=== PATIENT | female | born 1950 | race American Indian/Alaskan Native ===

== ENCOUNTER 2019-02-26 16:19 | Inpatient (IN) | payer MEDICARE ==
[2019-02-26] MEDS ORDERED: CARDIZEM IV ONE (16:21)
[2019-02-26] MEDS ORDERED: CARDIZEM/D5W 100MG/100ML 100 MG/100 ML BAG IV SCH (17:00)
--- NOTE | 2019-02-26 17:21 | XRay Report ---
CHEST 1 VIEW INDICATION / CLINICAL INFORMATION: Dysrhythmia. COMPARISON: 07/23/2014 FINDINGS: SUPPORT DEVICES: None. HEART / MEDIASTINUM: Cardiomegaly LUNGS / PLEURA: No significant pulmonary or pleural abnormality. No pneumothorax. ADDITIONAL FINDINGS: No significant additional findings. IMPRESSION: No acute pulmonary or pleural abnormality. No interval change from 07/23/2014 Signer Name: Jeb Jacobs MD FACBeti Signed: 02/26/2019 5:16 PM Workstation Name: [email or web address]
[2019-02-26] MEDS ORDERED: BABY ASPIRIN PO ONE (17:36)
[2019-02-26 17:38] LABS: Basophils % (Auto) 0.7 % (0.0-1.8); Eosinophils % (Auto) 0.7 % (0.0-4.3); Hematocrit 34.6 % (30.3-42.9); Hemoglobin 11.5 gm/dl (10.1-14.3); Lymphocytes # (Auto) 1.5 K/mm3 (1.2-5.4); Lymphocytes % (Auto) 21.3 % (13.4-35.0); Mean Corpuscular HGB Conc 33 % (30-34); Mean Corpuscular Volume 94 fl (79-97); Monocytes # (Auto) 0.6 K/mm3 (0.0-0.8); Monocytes % (Auto) 8.6 % (0.0-7.3); Platelet Count 170 K/mm3 (140-440); Red Blood Count 3.68 M/mm3 (3.65-5.03); Red Cell Distribution Width 16.5 % (13.2-15.2)
--- NOTE | 2019-02-26 17:48 | Emergency Department Report ---
ED Palpitations HPI - General Chief Complaint: Chest Pain Stated Complaint: CHEST PAIN Time Seen by Provider: 02/26/19 16:21 Source: EMS Mode of arrival: Stretcher Limitations: No Limitations - History of Present Illness Initial Comments: Mrs. Barnard is a very pleasant 68-year-old female with history of hypothyroidism type 2 diabetes mellitus, hypertension, anemia of chronic disease, hyponatremia, GERD, chronic rhinitis, stress incontinence, congestive heart failure, severe obesity who presents with severe chest pressure and tightness onset 1 hour prior to arrival. SVT heart rate 180-190 beats a minute noted EKG obtained per paramedics. Paramedics administered 2 doses of adenosine 12 mg each. No change in rate or rhythm. She has 10/10 in central chest heaviness with shortness of breath. She is unable to recall if she has had previous abnormal irregular rhythm. She is not on anticoagulation. She takes aspirin daily. She is followed by [place] physician Dr. Thayer. She has received care at [facility] on previous occasions. MD Complaint: irregular heart beat -: Sudden, hour(s) (1) Context: occured during rest Arrythmia History: other (patient cannot recall) Associated Symptoms: chest pain - Related Data Allergies Allergy/AdvReac Type Severity Reaction Status Date / Time insulin aspart [From Novolog] AdvReac Hives Verified 02/26/19 16:39 Penicillins AdvReac Swelling Verified 02/26/19 16:39 shellfish derived AdvReac Anaphylaxis Verified 02/26/19 16:39 ED Review of Systems ROS: Stated complaint: CHEST PAIN Other details as noted in HPI Comment: All other systems reviewed and negative Constitutional: denies: fever, malaise Respiratory: shortness of breath. denies: cough Cardiovascular: chest pain, palpitations ED Past Medical Hx - Past Medical History Previous Medical History?: Yes Hx Hypertension: Yes Hx Congestive Heart Failure: Yes - Surgical History Past Surgical History?: No - Social History Smoking Status: Unknown if ever smoked ED Physical Exam - General Limitations: No Limitations General appearance: alert, in no apparent distress - Head Head exam: Present: atraumatic, normocephalic - Eye Eye exam: Present: normal appearance - ENT ENT exam: Present: mucous membranes moist - Neck Neck exam: Present: normal inspection, full ROM - Respiratory Respiratory exam: Present: normal lung sounds bilaterally. Absent: respiratory distress, wheezes, rales, rhonchi - Cardiovascular Cardiovascular Exam: Present: regular rate, normal rhythm, normal heart sounds. Absent: systolic murmur, diastolic murmur, rubs, gallop - GI/Abdominal GI/Abdominal exam: Present: soft, normal bowel sounds. Absent: distended, tenderness, guarding, rebound - Extremities Exam Extremities exam: Present: other (venous stasis changes with severe lichenification) - Back Exam Back exam: Present: normal inspection - Neurological Exam Neurological exam: Present: alert, oriented X3 - Psychiatric Psychiatric exam: Present: normal affect, normal mood - Skin Skin exam: Present: warm, dry, intact, normal color. Absent: rash ED Course Vital Signs 02/26/19 02/26/19 02/26/19 16:26 16:37 16:38 Temperature 97.6 F 97.6 F Pulse Rate 192 H 192 H 192 H Respiratory 18 Rate Blood Pressure 112/76 112/61 Blood Pressure 112/81 [Left] O2 Sat by Pulse 18 L 98 Oximetry 02/26/19 02/26/19 02/26/19 17:40 18:53 19:09 Temperature Pulse Rate 76 72 79 Respiratory 18 Rate Blood Pressure 138/50 Blood Pressure 145/62 145/62 [Left] O2 Sat by Pulse 98 Oximetry 02/26/19 02/26/19 02/26/19 19:30 19:46 20:00 Temperature Pulse Rate 81 80 89 Respiratory 9 L 15 13 Rate Blood Pressure 138/50 140/59 149/66 Blood Pressure [Left] O2 Sat by Pulse 100 100 100 Oximetry 02/26/19 02/26/19 02/26/19 20:15 20:16 20:31 Temperature 98.1 F Pulse Rate 84 93 H 78 Respiratory 14 14 16 Rate Blood Pressure 155/68 143/68 Blood Pressure 143/70 [Left] O2 Sat by Pulse 100 99 100 Oximetry 02/26/19 20:45 Temperature Pulse Rate 85 Respiratory 15 Rate Blood Pressure 143/70 Blood Pressure [Left] O2 Sat by Pulse 100 Oximetry ED Medical Decision Making - Lab Data Result diagrams: 02/26/19 17:10 02/26/19 17:10 - EKG Data 02/26/19 17:47 Initial EKG obtained time 1622 Wide-complex tachycardia irregular varying QRS height, rate 190 beats a minute abnormal axis upsloping ST segments no notable ST elevation 02/26/19 17:48 Second EKG 1633 Atrial fibrillation ventricular rate 70 bpm, normal axis PVCs no ST elevation normal QRS PVC noted - Medical Decision Making Prior to patient's arrival, I reviewed the transmitted EKG which revealed SVT with bundle-branch block extremely fast 190 beats a minute. Upon patient's arrival I met her in the treatment room. I directed resuscitation. I spoke with paramedics at the bedside. While patient was on rn cardiac and pacer pads in place, we administered diltiazem 20 mg IV push once it was confirmed that blood pressure was normal. After 5 minutes, heart rate slowed from 200 bpm to 80 bpm. Repeat EKG revealed atrial fibrillation and right bundle-branch block. Once rate was controlled, chest pain had resolved. She received aspirin. She is currently now on diltiazem 5 mg per hour constant infusion. Heart rate is 75 bpm blood pressure is normal. I spoke with Dr. Yang Arriaza, she stated that this is likely new onset atrial fibrillation RVR. Into the 60 had normal sinus rhythm on EKG. I reviewed labs that showed abnormal kidney function. Age adjusted d-dimer level within normal range for her age. She is currently pain-free. Dr. Soria recommended admission to our facility. Admitted to the hospitalist service in stable condition. Critical Care Time: Yes Critical care attestation.: If time is entered above; I have spent that time in minutes in the direct care of this critically ill patient, excluding procedure time. 40 minutes of critical care time excluding procedures were used in the care of the patient. Patient required multiple assessments and interventions. I updat ed daughter at the bedside. I reviewed the electronic medical record. I spoke with consultants involved in the care of the patient. ED Disposition Clinical Impression: Atrial fibrillation with rapid ventricular response, Acute coronary syndrome, New onset atrial fibrillation Disposition: OP ADMIT IP TO THIS HOSP Is pt being admited?: Yes Does the pt Need Aspirin: No Condition: Stable
[2019-02-26 18:14] LABS: INR 1.31 (0.87-1.13)
[2019-02-26 18:36] LABS: Partial Thromboplastin Time 36.9 Sec. (24.2-36.6)
[2019-02-26 19:04] LABS: Alanine Aminotransferase 29 units/L (7-56); Albumin 4.2 g/dL (3.9-5); BUN/Creatinine Ratio 20; Blood Urea Nitrogen 42 mg/dL (7-17); Calcium 10.4 mg/dL (8.4-10.2); Hemolysis Index 74
[2019-02-26 21:02] LABS: Bacteria,Urine 1+ /HPF (Negative); Bilirubin,Urine NEG (Negative); Blood,Urine NEG (Negative); Color,Urine Straw (Yellow); Protein,Urine <15 mg/dL mg/dL (Negative); Urobilinogen,Urine < 2.0 mg/dL (<2.0)
[2019-02-26] MEDS ORDERED: BABY ASPIRIN ONE (21:27)
[2019-02-26 21:32] LABS: Amphetamine Screen,Urine PRESUMPTIVE NEGATIVE; Benzodiazepines Screen,Urine PRESUMPTIVE NEGATIVE; Cannabinoid Screen,Urine PRESUMPTIVE NEGATIVE; Cocaine Screen,Urine PRESUMPTIVE NEGATIVE; Methadone Screen,Urine PRESUMPTIVE NEGATIVE; Opiate Screen,Urine PRESUMPTIVE NEGATIVE
[2019-02-26] MEDS ORDERED: PERCOCET 5/325 PO PRN (21:40)
[2019-02-26] MEDS ORDERED: SODIUM CHLORIDE FLUSH SYRINGE 10 ML IV PRN (21:40)
[2019-02-26] MEDS ORDERED: ZOFRAN IV PRN (21:40)
[2019-02-26] MEDS ORDERED: D50W (25GM) Syringe IV PRN (21:40)
--- NOTE | 2019-02-26 21:51 | History and Physical Report ---
History of Present Illness Date of examination: 02/26/19 History of present illness: 68-year-old woman with a history of hypertension, diabetes, hypothyroidism, chronic kidney disease, anemia, GERD, CHF, obesity comes emergency room with complaints of chest pain. It started in the epigastric area which she described as a pressure-like sensation, lasting for hours intermittently, intensity follow 10, no radiation, can't identify exacerbating or relieving factor. Admits to shortness of breath, nausea, diaphoresis, feeling dizzy. EMS was called, she was found to be in SVT, rate in the 180s, she was given 2 doses of adenosine without any responses. The emergency room she was given 20 IV Cardizem and started on a Cardizem drip with good results. Patient has a sedentary lifestyle Review Of Systems: Constitutional: no weight loss, fever, chills Ears, eyes, nose, mouth and throat: no nasal congestion, no nasal discharge, no sinus pressure, blurry vision, diplopia Neck: No neck pain or rigidity. Cardiovascular: No palpitations Respiratory: No shortness of breath, cough Gastrointestinal: No hematochezia, abdominal pain Genitourinary : no dysuria, frequency , hematuria Musculoskeletal: no muscle ache , joint pain Integumentary: no rash, no pruritis Neurological: no parathesias, focal weakness Endocrine: no cold or heat intolerance, no polyuria or polydipsia Hematologic/Lymphatic: no easy bruising, no easy bleeding, no gland swelling Allergic/Immunologic: no urticaria, no angioedema. PAST MEDICAL HISTORY: hypertension, diabetes, hypothyroidism, chronic kidney disease, anemia, GERD, CHF, obesity PAST SURGICAL HISTORY: FAMILY HISTORY:hypertension, diabetes SOCIAL HISTORY: Denies tobacco, drugs, alcohol Medications and Allergies Allergies Allergy/AdvReac Type Severity Reaction Status Date / Time insulin aspart [From Novolog] AdvReac Hives Verified 02/26/19 16:39 Penicillins AdvReac Swelling Verified 02/26/19 16:39 shellfish derived AdvReac Anaphylaxis Verified 02/26/19 16:39 Active Meds: Active Medications Acetaminophen (Tylenol) 650 mg PO Q4H PRN PRN Reason: Pain MILD(1-3)/Fever >100.5/WEBB Dextrose (D50w (25gm) Syringe) 50 ml IV PRN PRN PRN Reason: Hypoglycemia Diltiazem HCl (Cardizem/D5w 100mg/100ml) 100 mg in 100 mls @ 5 mls/hr IV TITR AYANA; Protocol Last Admin: 02/26/19 19:09 Dose: 5 mg/hr, 5 mls/hr Documented by: Heparin Sodium/Sodium Chloride (Heparin/ 0.45% Nacl-25,000 Unit/500 Ml) 25,000 unit in 500 mls @ 40.823 mls/hr IV TITRATE AYANA; Protocol Ondansetron HCl (Zofran) 4 mg IV Q8H PRN PRN Reason: Nausea And Vomiting Oxycodone/Acetaminophen (Percocet 5/325) 1 tab PO Q6H PRN PRN Reason: Pain, Moderate (4-6) Sodium Chloride (Sodium Chloride Flush Syringe 10 Ml) 10 ml IV BID AYANA Sodium Chloride (Sodium Chloride Flush Syringe 10 Ml) 10 ml IV PRN PRN PRN Reason: LINE FLUSH Exam - Physical Exam Narrative exam: General Apperance: The patient sitting in bed no acute distress HEENT: Normocephalic, atraumatic. Pupils equally round and reactive to light, extraocular movement intact, and no sclericterus or JVD or thyromegaly or nodule. Neck supple, no carotid bruit, mucous membranes moist, no exudate or erythema Heart: S1-S2, regular is rhythm Lungs: Clear to auscultation bilaterally, breathing comfortable Abdomen: Positive bowel sounds, soft, nontender, nondistended, no organomegaly Extremities: No edema cyanosis clubbing Skin: no rash, nodule, warm and dry Neuro:CN 2 -12 intact, motor/sensory intact, speech is fluent - Constitutional Vitals: Temp Pulse Resp BP Pulse Ox 98.1 F 85 15 143/70 100 02/26/19 20:15 02/26/19 20:45 02/26/19 20:45 02/26/19 20:45 02/26/19 20:45 Results - Labs CBC & Chem 7: 02/26/19 17:10 02/26/19 17:10 Labs: Abnormal lab results 02/26/19 02/26/19 02/26/19 Range/Units 17:10 17:10 17:10 RDW 16.5 H (13.2-15.2) % [place] % (Auto) 8.6 H (0.0-7.3) % PT 16.0 H (12.2-14.9) Sec. INR 1.31 H (0.87-1.13) APTT 36.9 H (24.2-36.6) Sec. D-Dimer 256.70 H (0-234) ng/mlDDU BUN 42 H (7-17) mg/dL Creatinine 2.1 H (0.7-1.2) mg/dL Glucose 150 H (65-100) mg/dL Calcium 10.4 H (8.4-10.2) mg/dL AST 48 H (5-40) units/L Alkaline Phosphatase 140 H (35-129) units/L TSH (0.270-4.200) mlU/mL 02/26/19 Range/Units 17:10 RDW (13.2-15.2) % [place] % (Auto) (0.0-7.3) % PT (12.2-14.9) Sec. INR (0.87-1.13) APTT (24.2-36.6) Sec. D-Dimer (0-234) ng/mlDDU BUN (7-17) mg/dL Creatinine (0.7-1.2) mg/dL Glucose (65-100) mg/dL Calcium (8.4-10.2) mg/dL AST (5-40) units/L Alkaline Phosphatase (35-129) units/L TSH 17.500 H (0.270-4.200) mlU/mL Assessment and Plan Assessment New onset Afib Chest pain Abnormal d-dimer Hypertension Diabetes type 2 CHF, stable Chronic kidney disease Hypothyroidism Anemia GERD Obesity Plan Admit to medicine Continue Cardizem drip, start heparin drip Check cardiac enzymes, echo, monitor hemoglobin Consult critical care, cardiology Obtain VQ scan Check fingersticks, continue appropriate outpatient medications DVT prophylaxis
[2019-02-26] MEDS ORDERED: HEPARIN/ 0.45% NACL-25,000 UNIT/500 ML 25,000 UNIT/500 ML BAG IV SCH (22:00)
[2019-02-26 22:22] LABS: Hematocrit 32.4 % (30.3-42.9); Hemoglobin 10.7 gm/dl (10.1-14.3)
[2019-02-26 22:30] LABS: INR 1.13 (0.87-1.13)
[2019-02-26] MEDS: SODIUM CHLORIDE FLUSH SYRINGE 10 ML IV SCH (22:34)
[2019-02-26] MEDS ORDERED: HEPARIN/ 0.45% NACL-25,000 UNIT/500 ML 25,000 UNIT/500 ML BAG ONE (22:56)
[2019-02-27 05:16] LABS: Basophils % (Auto) 0.4 % (0.0-1.8); Eosinophils # (Auto) 0.1 K/mm3 (0.0-0.4); Eosinophils % (Auto) 1.3 % (0.0-4.3); Hematocrit 30.5 % (30.3-42.9); Hemoglobin 10.5 gm/dl (10.1-14.3); Lymphocytes # (Auto) 3.2 K/mm3 (1.2-5.4); Lymphocytes % (Auto) 39.3 % (13.4-35.0); Mean Corpuscular HGB Conc 35 % (30-34); Mean Corpuscular Volume 91 fl (79-97); Monocytes # (Auto) 0.7 K/mm3 (0.0-0.8); Monocytes % (Auto) 8.6 % (0.0-7.3); Platelet Count 175 K/mm3 (140-440); Red Blood Count 3.33 M/mm3 (3.65-5.03)
[2019-02-27 05:30] LABS: Calcium 10.3 mg/dL (8.4-10.2)
[2019-02-27 05:32] LABS: Creatine Kinase MB 1.9 ng/mL (0.0-4.0)
[2019-02-27 05:54] LABS: Chol/HDL Ratio 2.18 %
--- NOTE | 2019-02-27 10:38 | Consultation ---
REFERRING PHYSICIAN: Dr. Penny Genao. REASON FOR CONSULTATION: Advice and opinion regarding chest pain. PRIMARY CARE PHYSICIAN: At [place]. HISTORY OF PRESENT ILLNESS: The patient is a very pleasant 68-year-old -Filipino female with history of hypertension, diabetes, hypothyroidism, chronic kidney disease, anemia, ", obesity, gastroesophageal reflux disease, who presents here with chest pain. She describes intermittent chest pain, no radiation, chronic shortness of breath, nausea. She was seen in ICU, feels much better. She was found to be in atrial fibrillation, which appears to be new for her. No chest pain, at this point feels much better, seen in ICU. PAST MEDICAL HISTORY: As aforementioned. MEDICATIONS: Inpatient and outpatient medications reviewed. ALLERGIES: INSULIN, PENICILLIN, SHELLFISH. PAST SURGICAL HISTORY: C-sections. FAMILY HISTORY: Hypertension, diabetes. SOCIAL HISTORY: Nondrinker. Nonsmoker. She quit smoking as a teenager. She lives in [place]. She does have a very sedentary lifestyle. Apparently, she had 2 heart attacks years ago. Does not have any stents, details unclear. PHYSICAL EXAMINATION: VITAL SIGNS: Blood pressure is in the 130s/60s. She is afebrile. Tele reveals intermittent atrial fibrillation with controlled ventricular response. O2 sats 99% on 2 liters. GENERAL: This is an elderly -Filipino female, in no apparent distress, oriented x 3. HEENT: Sclerae icteric. NECK: Supple. No mass or JVD. CHEST: Clear to auscultation bilaterally. Good air movement. CARDIOVASCULAR: Irregularly irregular with controlled ventricular response. ABDOMEN: Soft, nontender, nondistended. Normoactive bowel sounds in 4 quadrants. EXTREMITIES: 1+ edema bilateral lower extremities. No rashes. SKIN: Warm skin. LABORATORY DATA: ECG shows atrial fibrillation with controlled ventricular response. LABORATORY DATA: CBC is unremarkable. Her potassium is 3.2, creatinine was 2.1 yesterday, 1.9 today. Magnesium is 1.6. Troponin was negative yesterday 0.041, borderline today. Urinalysis is unremarkable. UDS is unremarkable. Chest x-ray shows no acute findings. ASSESSMENT AND PLAN: In summary, the patient is a very pleasant 68-year-old -Filipino female with multiple chronic medical problems including hypertension, diabetes, hypothyroidism, chronic kidney disease, anemia and questionable heart failure, who presents here with chest pain, which has now resolved. 1. Atrial fibrillation with rapid ventricular response, now controlled ventricular response, new diagnosis. 2. Chest pain, which is with typical and atypical features, now resolved. At this point, agree with IV heparin, discontinue IV Cardizem and start p.o. Cardizem. Discussed atrial fibrillation. Stress test in a.m. Follow up echocardiogram. We will continue aspirin, statin therapy. Thank you for this consultation. We will be happy to follow along with you. [facility]# [id number]/NTS
[2019-02-27] MEDS: SODIUM CHLORIDE FLUSH SYRINGE 10 ML IV SCH ×3 (11:02→21:48)
[2019-02-27] MEDS: CARDIZEM PO SCH ×3 (11:07→23:05)
[2019-02-27] MEDS: ASPIRIN PO SCH (11:07)
--- NOTE | 2019-02-27 11:07 | Nuclear Medicine Report ---
NM lung scan perf/vent INDICATION / CLINICAL INFORMATION: eval for pe. TECHNIQUE: Dose / Agent / Route: 10.1 mCi of xenon-133 gas was inhaled. 5.1 mCi of technetium 99 MAA was then in jected intravenously COMPARISON: No relevant prior imaging study available. FINDINGS: Ventilation images are normal. Perfusion images show no significant segmental or subsegmental defect. IMPRESSION: Low probability of pulmonary embolus. Signer Name: Jeb Jacobs MD FACR Signed: 02/27/2019 11:03 AM Workstation Name: [id number]
--- NOTE | 2019-02-27 11:32 | Progress Note ---
Assessment and Plan Assessment and plan: Patient is 68-year-old woman with a history of hypertension, diabetes, hypothyroidism, chronic kidney disease, anemia, GERD, CHF, obesity comes emergency room with complaints of chest pain. EMS was called, she was found to be in SVT, rate in the 180s, she was given 2 doses of adenosine without any responses. Then she was given 20 IV Cardizem x 1 and started on a Cardizem drip with good results; therefore, admitted to ICU New onset Afib Chest pain: Cardiology is following Abnormal d-dimer, v/q scan shows low prob for PE Hypertension Diabetes type 2 CHF, stable Chronic kidney disease Hypothyroidism Anemia GERD Obesity, bmi 56.2 Plan Admit to medicine Continue Cardizem drip, stop heparin drip Check cardiac enzymes, echo, monitor hemoglobin Consult critical care, cardiology Check fingersticks, continue appropriate outpatient medications DVT prophylaxis History Interval history: Patient was seen and examined. Follow-up on current diagnosis of AFib. No overnight events reported to me. Patient denies any chest pain, shortness breath, nausea/vomiting or severe headaches. Imaging, nursing note, chart, labs and old chart reviewed. Hospitalist Physical - Physical exam Narrative exam: Gen: WDWN, Morbid obese, bmi 52.6 NAD, Awake, Alert, Orientated HEENT: NCAT, EOMI, PERRL, OP Clear Neck: supple, no adenopathy, no thyromegaly, no JVD CVS/Heart: irregular irregular, normal S1S2, pulses present bilaterally Chest/Lungs: CTA B, Symmetrical chest expansion, good air entry bilaterally GI/Abdomen: soft, NTND, good bowel sounds, no guarding or rebound /Bladder: no suprapubic tenderness, no CVA or paraspinal tenderness Extermity/Skin: no c/c/e, no obvious rash MSK: FROM x 4 Neuro: CN 2-12 grossly intact, no new focal deficits Psych: calm - Constitutional Vitals: Temp Pulse Resp BP Pulse Ox 97.8 F 69 15 144/63 100 02/27/19 07:00 02/27/19 11:07 02/27/19 09:21 02/27/19 11:07 02/27/19 09:21 Results - Labs CBC & Chem 7: 02/27/19 04:55 02/27/19 04:55 Labs: Laboratory Last Values WBC 8.1 K/mm3 (4.5-11.0) 02/27/19 04:55 RBC 3.33 M/mm3 (3.65-5.03) L 02/27/19 04:55 Hgb 10.5 gm/dl (10.1-14.3) 02/27/19 04:55 Hct 30.5 % (30.3-42.9) 02/27/19 04:55 MCV 91 fl (79-97) 02/27/19 04:55 MCH 32 pg (28-32) 02/27/19 04:55 MCHC 35 % (30-34) H 02/27/19 04:55 RDW 16.0 % (13.2-15.2) H 02/27/19 04:55 Plt Count 175 K/mm3 (140-440) 02/27/19 04:55 Lymph % (Auto) 39.3 % (13.4-35.0) H 02/27/19 04:55 [place] % (Auto) 8.6 % (0.0-7.3) H 02/27/19 04:55 Eos % (Auto) 1.3 % (0.0-4.3) 02/27/19 04:55 Baso % (Auto) 0.4 % (0.0-1.8) 02/27/19 04:55 Lymph # 3.2 K/mm3 (1.2-5.4) 02/27/19 04:55 [place] # 0.7 K/mm3 (0.0-0.8) 02/27/19 04:55 Eos # 0.1 K/mm3 (0.0-0.4) 02/27/19 04:55 Baso # 0.0 K/mm3 (0.0-0.1) 02/27/19 04:55 Seg Neutrophils % 50.4 % (40.0-70.0) 02/27/19 04:55 Seg Neutrophils # 4.1 K/mm3 (1.8-7.7) 02/27/19 04:55 PT 14.2 Sec. (12.2-14.9) 02/26/19 21:50 INR 1.13 (0.87-1.13) 02/26/19 21:50 APTT 47.0 Sec. (24.2-36.6) H 02/26/19 21:50 256.70 ng/mlDDU (0-234) H 02/26/19 17:10 Heparin Anti-Xa Level 0.21 U.I./ml (0.3-0.7) L 02/27/19 04:55 Sodium 144 mmol/L (137-145) 02/27/19 04:55 Potassium 3.2 mmol/L (3.6-5.0) L 02/27/19 04:55 Chloride 104.7 mmol/L (98-107) 02/27/19 04:55 Carbon Dioxide 27 mmol/L (22-30) 02/27/19 04:55 16 mmol/L 02/27/19 04:55 BUN 39 mg/dL (7-17) H 02/27/19 04:55 1.9 mg/dL (0.7-1.2) H 02/27/19 04:55 Estimated GFR 32 ml/min 02/27/19 04:55 21 % 02/27/19 04:55 Glucose 99 mg/dL (65-100) 02/27/19 04:55 Calcium 10.3 mg/dL (8.4-10.2) H 02/27/19 04:55 Phosphorus 2.40 mg/dL (2.5-4.5) L 02/27/19 04:55 Magnesium 1.60 mg/dL (1.7-2.3) L 02/27/19 04:55 0.40 mg/dL (0.1-1.2) 02/26/19 17:10 AST 48 units/L (5-40) H 02/26/19 17:10 ALT 29 units/L (7-56) 02/26/19 17:10 140 units/L (35-129) H 02/26/19 17:10 47 units/L (30-135) 02/27/19 04:55 CK-MB (CK-2) 1.9 ng/mL (0.0-4.0) 02/27/19 04:55 CK-MB (CK-2) Rel Index 4.0 (0-4) 02/27/19 04:55 0.041 ng/mL (0.00-0.029) H D 02/27/19 04:55 6.7 g/dL (6.3-8.2) 02/26/19 17:10 4.2 g/dL (3.9-5) 02/26/19 17:10 1.7 % 02/26/19 17:10 Triglycerides 74 mg/dL (2-149) 02/27/19 04:55 Cholesterol 109 mg/dL (50-199) 02/27/19 04:55 59 mg/dL (50-130) 02/27/19 04:55 50 mg/dL (40-59) 02/27/19 04:55 2.18 % 02/27/19 04:55 TSH 17.500 mlU/mL (0.270-4.200) H 02/26/19 17:10 5.0 ug/dL (4.0-12.0) 02/27/19 04:00 Straw (Yellow) 02/26/19 Unknown Clear (Clear) 02/26/19 Unknown 7.0 (5.0-7.0) 02/26/19 Unknown Ur Specific [place] 1.009 (1.003-1.030) 02/26/19 Unknown <15 mg/dl mg/dL (Negative) 02/26/19 Unknown Neg mg/dL (Negative) 02/26/19 Unknown Neg mg/dL (Negative) 02/26/19 Unknown Neg (Negative) 02/26/19 Unknown Neg (Negative) 02/26/19 Unknown Neg (Negative) 02/26/19 Unknown < 2.0 mg/dL (<2.0) 02/26/19 Unknown Ur Leukocyte Esterase Tr (Negative) 02/26/19 Unknown 2.0 /HPF (0.0-6.0) 02/26/19 Unknown 1.0 /HPF (0.0-6.0) 02/26/19 Unknown U Epithel Cells (Auto) 1.0 /HPF (0-13.0) 02/26/19 Unknown 1+ /HPF (Negative) 02/26/19 Unknown Presumptive negative 02/26/19 Unknown Presumptive negative 02/26/19 Unknown Ur Barbiturates Screen Presumptive negative 02/26/19 Unknown Ur Phencyclidine Scrn Presumptive negative 02/26/19 Unknown Ur Amphetamines Screen Presumptive negative 02/26/19 Unknown U Benzodiazepines Scrn Presumptive negative 02/26/19 Unknown Presumptive negative 02/26/19 Unknown U Marijuana (THC) Screen Presumptive negative 02/26/19 Unknown Disclamer 02/26/19 Unknown Active Medications - Current Medications Current Medications: Generic Name Dose Route Start Last Admin Trade Name Freq PRN Reason Stop Dose Admin Acetaminophen 650 mg 02/26/19 21:40 Tylenol PO Q4H PRN Pain MILD(1-3)/Fever >100.5/WEBB Aspirin 325 mg 02/27/19 11:00 02/27/19 11:07 Aspirin PO 325 mg QDAY AYANA Administration Atorvastatin Calcium 40 mg 02/27/19 22:00 Lipitor PO QHS AYANA Dextrose 50 ml 02/26/19 21:40 D50w (25gm) Syringe IV PRN PRN Hypoglycemia Diltiazem HCl 30 mg 02/27/19 12:00 02/27/19 11:07 Cardizem PO 30 mg Q6HR AYANA Administration Heparin Sodium/Sodium Chloride 25,000 unit in 500 mls @ 20 mls/hr 02/26/19 22:00 02/27/19 07:20 Heparin/ 0.45% Nacl-25,000 Unit/500 Ml IV 1,150 units/hr TITRATE AYANA 23 mls/hr Titration Protocol 1,000 UNITS/HR Ondansetron HCl 4 mg 02/26/19 21:40 Zofran IV Q8H PRN Nausea And Vomiting Oxycodone/Acetaminophen 1 tab 02/26/19 21:40 Percocet 5/325 PO Q6H PRN Pain, Moderate (4-6) Sodium Chloride 10 ml 02/26/19 22:00 02/27/19 11:02 Sodium Chloride Flush Syringe 10 Ml IV 10 ml BID AYANA Administration Sodium Chloride 10 ml 02/26/19 21:40 Sodium Chloride Flush Syringe 10 Ml IV PRN PRN LINE FLUSH Nutrition/Malnutrition Assess - Dietary Evaluation Nutrition/Malnutrition Findings: Nutrition Notes Start: 02/27/19 10:01 Freq: Status: Active Protocol: Document 02/27/19 10:02 LM (Rec: 02/27/19 10:08 LM [id number]) Nutrition Notes Initial or Follow up Brief Note Subjective/Other Information RN screen for skin risk. Chemo score 18. Pt with no wound. Pt ate 75% of breakfast this AM. Pt denied any weight loss. Nutrition Intervention Revisit per MD consult or patient Sign Off request:
[2019-02-27] MEDS ORDERED: K-DUR PO ONE (14:13)
[2019-02-27] MEDS ORDERED: MAGNESIUM SULFATE 2GM/50ML 2 GM/50 ML BAG IV ONE (14:13)
--- NOTE | 2019-02-27 17:37 | Event Note ---
Date: 02/27/19 Critical care consult was placed, but patient has been down-graded to Telemetry. Will cancel consult. Please re-consult or call us if patient requires pulmonary consultation.
[2019-02-27] MEDS: TYLENOL PO PRN (20:42)
[2019-02-27] MEDS: TESSALON PERLES PO SCH (23:04)
[2019-02-28] MEDS: TESSALON PERLES PO SCH ×2 (05:56→13:47)
[2019-02-28] MEDS: CARDIZEM PO SCH ×2 (05:56→12:07)
[2019-02-28] MEDS: TYLENOL PO PRN (06:00)
[2019-02-28 08:04] LABS: Hematocrit 30.5 % (30.3-42.9); Hemoglobin 10.2 gm/dl (10.1-14.3); Mean Corpuscular HGB Conc 34 % (30-34); Mean Corpuscular Volume 93 fl (79-97); Platelet Count 169 K/mm3 (140-440); Red Blood Count 3.29 M/mm3 (3.65-5.03); Red Cell Distribution Width 16.2 % (13.2-15.2)
[2019-02-28 08:15] LABS: Calcium 9.8 mg/dL (8.4-10.2)
--- NOTE | 2019-02-28 11:07 | Discharge Summary ---
Providers - Providers Date of Admission: 02/26/19 21:41 Attending physician: MARIPOSA FELICIANO MD 02/26/19 21:40 Consult to Physician [CONS] Routine Comment: Consulting Provider: TEQUILA LUCIA Physician Instructions: Reason For Exam: afib new, chewt pain Primary care physician: MIRELA YIP MD Hospitalization Condition: Stable Hospital course: Patient is 68-year-old woman with a history of hypertension, diabetes, hypothyroidism, chronic kidney disease, anemia, GERD, CHF, obesity comes emergency room with complaints of chest pain. EMS was called, she was found to be in SVT, rate in the 180s, she was given 2 doses of adenosine without any responses. Then she was given 20 IV Cardizem x 1 and started on a Cardizem drip with good results; therefore, admitted to ICU New onset Afib Chest pain: Cardiology is following Abnormal d-dimer, v/q scan shows low prob for PE Hypertension Diabetes type 2 CHF, stable Chronic kidney disease Hypothyroidism Anemia GERD Obesity, bmi 56.2 Plan Admit to medicine Continue Cardizem drip, stop heparin drip Check cardiac enzymes, echo, monitor hemoglobin Consult critical care, cardiology Check fingersticks, continue appropriate outpatient medications DVT prophylaxis Disposition: DC-30 STILL A PATIENT Core Measure Documentation - Palliative Care Palliative Care/ Comfort Measures: Not Applicable Exam - Constitutional Vitals: Temp Pulse Resp BP Pulse Ox 98.6 F 87 20 153/78 95 02/28/19 05:04 02/28/19 05:56 02/28/19 06:00 02/28/19 05:56 02/28/19 05:03 Plan Activity: advance as tolerated, fall precautions Diet: low fat, diabetic Special Instructions: record daily weights, record daily BP diary Follow up with: PRIMARY CARE, [Referring] - 3-5 Days MATIAS HAN MD [Staff Physician] - 7 Days Prescriptions: AtorvaSTATin [Lipitor] 40 mg PO QHS #30 tablet Aspirin [Aspirin BABY CHEW TAB] 81 mg PO QDAY #30 tab.chew dilTIAZem HCl [Diltiazem 24Hr ER (Cd)] 240 mg PO DAILY #30 cap.er.24h Apixaban [Eliquis] 5 mg PO Q12HR #60 tablet Metoprolol Xl [Metoprolol SUCCINATE ER TAB] 50 mg PO QDAY #30 tablet Benzonatate [Tessalon Perlrivera] 200 mg PO Q8HR #10 capsule
[2019-02-28] MEDS: ASPIRIN PO SCH (12:07)
[2019-02-28 12:09] VITALS: BP 125/66
[2019-02-28] MEDS: SODIUM CHLORIDE FLUSH SYRINGE 10 ML IV SCH (12:10)
--- NOTE | 2019-02-28 12:13 | Progress Note ---
Assessment and Plan Pt was scheduled for pharmacologic MPI stress test this AM. However, her body habitus precludes stress testing at this time. Currently stable cardiac status. Pt reports resolution of chest pain. She states that when her chest pain was present, it was aggravated by deep inspiration and movement. Pt also with h/o GERD and arthritis. No plans for ischemic w/u at this time. If symptoms recur, can consider cardiac catheterization with primary burnishing machine operator at [place]. Pt is agreeable to this plan. Echo reviewed - EF 45-50%, restrictive diastolic filling, LA severely dilated, mild MR, mild TR, mod pulm HTN with RVSP 53mmHg. Tele reviewed - pt remains in Aflutter with HR 90s - 100s. This is a new diagnosis for pt. Intiate Eliquis 5mg BID and convert cardizem to cardizem CD 120mg daily. Pt reports that she does have sleep apnea, however, she is admittedly noncompliant with CPAP. Compliance with CPAP encouraged. TSH noted to be elevated - further eval/management per primary. Pt may discharge from cardiology standpoint. Recommend pt follow up with her primary burnishing machine operator at [facility] within 1-2 weeks of hospital discharge. Pt verb alizes understanding. The patient has been seen in conjunction with Dr. Pat who agrees with the assessment and plan of care. - Patient Problems (1) Atypical chest pain Current Visit: Yes Status: Resolved (2) New onset atrial fibrillation Current Visit: Yes Status: Acute (3) HTN (hypertension) Current Visit: Yes Status: Chronic (4) Diabetes Current Visit: Yes Status: Acute (5) Hypothyroidism Current Visit: Yes Status: Chronic (6) CKD (chronic kidney disease) Current Visit: Yes Status: Chronic (7) Morbid obesity Current Visit: Yes Status: Chronic (8) Sleep apnea Current Visit: Yes Status: Chronic Subjective Date of service: 02/28/19 Principal diagnosis: cp Interval history: pt resting in bed, states she is feeling better, chest pain has resolved. tele reviewed - in Aflutter with CVR. Objective Last Vital Signs Temp 98.6 F 02/28/19 05:04 Pulse 92 H 02/28/19 12:07 Resp 20 02/28/19 06:00 BP 125/66 02/28/19 12:07 Pulse Ox 95 02/28/19 05:03 - Physical Examination General: No Apparent Distress HEENT: Positive: PERRL, Normocephaly, Mucus Membranes Moist Neck: Positive: neck supple, trachea midline Cardiac: Positive: irregularly irregular, S1/S2 Lungs: Positive: Decreased Breath Sounds Neuro: Positive: Grossly Intact Abdomen: Negative: Tender Skin: Negative: Rash, Wound Musculoskeletal: No Pain Extremities: Absent: edema - Labs and Meds CBC 02/28/19 Range/Units 07:18 WBC 9.6 (4.5-11.0) K/mm3 RBC 3.29 L (3.65-5.03) M/mm3 Hgb 10.2 (10.1-14.3) gm/dl Hct 30.5 (30.3-42.9) % Plt Count 169 (140-440) K/mm3 Comprehensive Metabolic Panel 02/28/19 Range/Units 07:18 Sodium 141 (137-145) mmol/L Potassium 3.8 (3.6-5.0) mmol/L Chloride 104.9 (98-107) mmol/L Carbon Dioxide 26 (22-30) mmol/L BUN 35 H (7-17) mg/dL Creatinine 1.7 H (0.7-1.2) mg/dL Glucose 107 H (65-100) mg/dL Calcium 9.8 (8.4-10.2) mg/dL - Imaging and Cardiology EKG: report reviewed, image reviewed - Telemetry EKG Rhythm: Atrial Flutter
[2019-02-28] MEDS ORDERED: ELIQUIS PO SCH (22:00)
[2019-03-01] MEDS ORDERED: BABY ASPIRIN PO SCH (10:00)
== END 2019-02-28 17:29 | disposition home or self-care (01) | DRG 309 ==
LOC: ED 16:19 → CC1 21:41 → 4A 02-27 17:16
PROVIDERS: ADMIT Internal Medicine; ATTEND Internal Medicine
DX: I47.1 Supraventricular tachycardia (principal); I13.0 Hypertensive heart and chronic kidney disease with heart failure and stage 1 through stage 4 chronic kidney disease, or unspecified chronic kidney disease; Z68.43 Body mass index [BMI] 50.0-59.9, adult; I48.91 Unspecified atrial fibrillation; I50.9 Heart failure, unspecified; N18.9 Chronic kidney disease, unspecified; D64.9 Anemia, unspecified; E66.01 Morbid (severe) obesity due to excess calories; K21.9 Gastro-esophageal reflux disease without esophagitis; I37.1 Nonrheumatic pulmonary valve insufficiency; I27.20 Pulmonary hypertension, unspecified; G47.30 Sleep apnea, unspecified; E11.22 Type 2 diabetes mellitus with diabetic chronic kidney disease; R07.89 Other chest pain; Z82.49 Family history of ischemic heart disease and other diseases of the circulatory system; Z83.3 Family history of diabetes mellitus; Z88.0 Allergy status to penicillin; Z88.8 Allergy status to other drugs, medicaments and biological substances; Z91.013 Allergy to seafood; Z79.84 Long term (current) use of oral hypoglycemic drugs
CPT/HCPCS: 36415; 71045; 78582; 80048; 80053; 80061; 80307; 81001; 82550; 82553; 82962; 83735; 84100; 84436; 84443; 84484; 85014; 85018; 85025; 85027; 85049; 85379; 85520; 85610; 85730; 87116; 93005; 93010; 93306; 94760; 96374; 96375; G0378; A9270-GY; A9540; A9558; J1644; J3475